=== PATIENT | male | born 2000 | race Caucasian/White ===

== ENCOUNTER 2019-05-09 10:16 | Emergency (ER) | payer MEDICAID ==
[~2019-05-09] VITALS: Ht 175.3 cm; Wt 133.3 kg
[~2019-05-09 10:16] MED LIST: CEPH-443 PO; NAPR-985 PO; SULF1TAB31 PO
[2019-05-09 10:20] VITALS: BP 144/64; PULSE 86; RESP 18; Ht 175.3 cm; Wt 133.3 kg
== END 2019-05-09 11:15 | disposition home or self-care (01) ==
LOC: FTE 10:16
DX: L02.212 Cutaneous abscess of back [any part, except buttock and flank] (principal)
CPT/HCPCS: 99283

== ENCOUNTER 2019-05-11 11:08 | Emergency (ER) | payer MEDICAID ==
[~2019-05-11] VITALS: Ht 165.1 cm; Wt 112.0 kg
[2019-05-11 11:15] VITALS: BP 132/64; PULSE 64; RESP 18; Ht 165.1 cm; Wt 112.0 kg
[2019-05-11] MEDS ORDERED: IBUPROFEN 800 MG TAB PO ONE (12:00)
== END 2019-05-11 12:14 | disposition home or self-care (01) ==
LOC: FTE 11:08
DX: L02.31 Cutaneous abscess of buttock (principal)
CPT/HCPCS: 10060; Z7502; Z7610

== ENCOUNTER 2019-05-13 14:52 | Emergency (ER) | payer MEDICAID ==
[~2019-05-13] VITALS: Ht 175.3 cm; Wt 133.2 kg
[2019-05-13 15:13] VITALS: BP 134/62; PULSE 58; RESP 16; Ht 175.3 cm; Wt 133.2 kg
== END 2019-05-13 16:33 | disposition home or self-care (01) ==
LOC: FTE 14:52
DX: L05.01 Pilonidal cyst with abscess (principal)
CPT/HCPCS: 99281